=== PATIENT | male | born 1960 | race Caucasian/White ===

== ENCOUNTER 2020-06-10 11:15 | Day surgery (SDC) | payer OTHER, SELFPAY ==
[~2020-06-10] VITALS: Ht 185.4 cm; Wt 107.0 kg
[2020-06-10] MEDS ORDERED: diphenhydrAMINE 50 MG/ML VIAL ONE (12:51)
[2020-06-10] MEDS ORDERED: fentaNYL citrate 0.05 MG/ML VIAL ONE (12:51)
[2020-06-10] MEDS ORDERED: MIDAZOLAM 5 MG/5 ML VIAL ONE (12:51)
[2020-06-10] MEDS ORDERED: fentaNYL citrate 0.05 MG/ML VIAL IVP ONE (13:55)
[2020-06-10] MEDS ORDERED: MIDAZOLAM 2 MG/2 ML VIAL IVP ONE (13:55)
== END 2020-06-10 14:40 | disposition home or self-care (01) ==
LOC: MDS 11:15 → MMU 11:15 → MDS 14:40
PROVIDERS: ATTEND Internal Medicine Gastroenterology
DX: Z12.11 Encounter for screening for malignant neoplasm of colon (principal); D12.2 Benign neoplasm of ascending colon; D12.8 Benign neoplasm of rectum; R13.10 Dysphagia, unspecified; Z87.891 Personal history of nicotine dependence; Z79.899 Other long term (current) drug therapy
CPT/HCPCS: 43239; 45380; 45385; 87426; 88305; J2250; J3010; J1200

== ENCOUNTER 2023-11-30 08:53 | Day surgery (SDC) | payer OTHER ==
[~2023-11-30] VITALS: Ht 185.4 cm; Wt 63.5 kg
[2023-11-30] MEDS ORDERED: fentaNYL citrate 0.05 MG/ML VIAL ONE (09:42)
[2023-11-30] MEDS ORDERED: LIDOCAINE 2% 100 MG/5 ML UJET TP ONE ×2 (09:42→10:55)
[2023-11-30] MEDS ORDERED: MIDAZOLAM 2 MG/2 ML VIAL ONE (09:42)
[2023-11-30] MEDS: fentaNYL citrate 0.05 MG/ML VIAL IVP ONE (09:56)
[2023-11-30] MEDS ORDERED: FENTANYL C 0.025 MG/HR PATCH TD SCH (10:55)
== END 2023-11-30 10:16 | disposition home or self-care (01) ==
LOC: MDS 08:53 → MMU 08:53 → MDS 10:16
PROVIDERS: ATTEND Internal Medicine Gastroenterology
DX: Z12.11 Encounter for screening for malignant neoplasm of colon (principal); K63.5 Polyp of colon; K64.8 Other hemorrhoids; Z86.010 Personal history of colon polyps; Z87.891 Personal history of nicotine dependence; Z98.1 Arthrodesis status; Z98.890 Other specified postprocedural states
CPT/HCPCS: 45385; J3010; J2250